=== PATIENT | female | born 1965 | race Caucasian/White ===

== ENCOUNTER 2018-11-28 16:59 | Emergency (ER) | payer MEDICAID ==
--- NOTE | 2018-11-28 20:17 | ER ---
HISTORY OF PRESENT ILLNESS: A 53-year-old lady here with complaints of injuring her left ankle. She was on a dock, taking some pictures when she rolled her left ankle and she fell. The patient has had some spinal problems. She has had spinal cancer in the past and has had significant loss of feeling involving both legs. The patient states she has noticed it is swollen and even though she cannot really feel pain, she knew that she should come in for evaluation. She denies any other injuries. The patient tells me that she does take Percocet 3 times a day for chronic pain that is linked to past spinal surgeries and she also takes Ultram for breakthrough pain. OBJECTIVE: GENERAL APPEARANCE: The patient is awake and alert. She is pleasant, smiley, talkative, in no obvious distress. VITAL SIGNS: Reviewed. She is afebrile. Pulse is 82, BP 117/62. EXTREMITIES: Examining the left ankle reveals swelling of the ankle, mainly above the ankle joint, although the patient's shoe and sock is applying mild pressure just below the ankle joint. There is a mild amount of bruising on the lateral side. There is no swelling to speak of on the medial side. The mid and distal foot are nontender, as well as the mid and upper portion of the lower leg. DIAGNOSTIC DATA: X-ray of the left ankle was obtained. There is a distal fibular fracture with minimal displacement. The joint space appears well preserved and I do not see any fracture or acute bony abnormality of the distal tibia. DIAGNOSIS: Distal fibular fracture. TREATMENT PLAN: A walking CAM was given to the patient. RICE therapy was discussed. She states that she cannot use crutches but she has a walker, she will use that, and I advised the patient to follow up with her primary care provider early next week for recheck when she gets back home. She has no further questions. CHEKO/MODL /[id number]
--- NOTE | 2018-11-29 13:56 | CR ---
DATE OF SERVICE: 11/28/2018 CLINICAL DATA: Twisted and fell today. LEFT ANKLE: There is prominent soft tissue swelling over the lateral malleolus. There is a mildly displaced oblique fracture through the distal fibular metaphysis. There is also mildly displaced vertical fracture through the posterior malleolus of the distal tibia. No other acute abnormalities. There are plantar and posterior calcaneal spurs. IMPRESSION: Bimalleolar fracture. [id number] [facility]
== END 2018-11-28 17:45 | disposition home or self-care (01) ==
LOC: LB.ED 16:59
DX: S82.832A Other fracture of upper and lower end of left fibula, initial encounter for closed fracture (principal); W01.0XXA Fall on same level from slipping, tripping and stumbling without subsequent striking against object, initial encounter
CPT/HCPCS: 73600-LT; 99283-25